=== PATIENT | female | born 1965 | race Caucasian/White ===

== ENCOUNTER 2017-02-28 20:40 | Inpatient (IN) | payer OTHER, MEDICAID ==
[2017-02-28] MEDS: LIDOCAINE/MYLANTA 40 ML BTL PO (22:35)
[2017-02-28] MEDS: SOD CHLORIDE 0.9% 1,000 ML IV (22:35)
[2017-02-28] MEDS: ONDANSETRON 4 MG INJ IV (22:35)
[2017-02-28] MEDS: ACETAMINOPHEN 325 MG TAB PO (22:41)
[2017-02-28 22:50] LABS: ADD MAN DIFF? NO
[2017-02-28 22:56] LABS: WHITE BLOOD COUNT 13.2 10^3/ul (4.8-10.8)
[2017-02-28 22:56] LABS: ABNORMAL IP MESSAGE 1; BASOPHILS % 0.3 % (0.0-2.0); EOSINOPHILS # 0.1 10^3/ul (0.0-0.5); EOSINOPHILS % 0.4 % (0.0-7.0); HEMATOCRIT 36.2 % (37.0-47.0); HEMOGLOBIN 12.2 g/dl (12.0-16.0); LYMPHOCYTES # 0.5 10^3/ul (0.8-2.9); MEAN CORPUSCULAR HEMOGLOBIN 27.7 pg (29.0-33.0); MEAN CORPUSCULAR HGB CONC 33.7 g/dl (32.0-37.0); MEAN CORPUSCULAR VOLUME 82.3 fl (82.0-101.0); MEAN PLATELET VOLUME 11.8 fl (7.4-10.4); MONOCYTE # 0.4 10^3/ul (0.3-0.9); MONOCYTES % 3.2 % (0.0-11.0); NEUTROPHIL # 12.1 10^3/ul (1.6-7.5); NEUTROPHILS % 91.8 % (39.0-77.0); PLATELET COUNT 206 10^3/UL (140-415); RED CELL DISTRIBUTION WIDTH 13.6 % (11.5-14.5)
[2017-02-28 23:00] LABS: POSITIVE DIFF @See below
[2017-02-28 23:03] LABS: ADD UMIC YES; UR ASCORBIC ACID NEGATIVE (NEGATIVE); UR BACTERIA FEW /HPF (NONE SEEN); UR BILIRUBIN (Dip) NEGATIVE (NEGATIVE); UR BLOOD (Dip) NEGATIVE (NEGATIVE); UR CLARITY SLIGHTLY CLOUDY (CLEAR); UR COLOR YELLOW (YELLOW); UR GLUCOSE (Dip) NEGATIVE (NEGATIVE); UR KETONES (Dip) 1+ mg/dL (NEGATIVE); UR LEUKOCYTE ESTERASE (Dip) NEGATIVE Leu/ul (NEGATIVE); UR MUCUS FEW /HPF (NONE SEEN); UR NITRITE (Dip) NEGATIVE (NEGATIVE); UR RBC 2 /HPF (0-5); UR SPECIFIC GRAVITY (Dip) 1.016 (1.003-1.030); UR SQUAMOUS EPITHELIAL CELL FEW /HPF (FEW); UR TOTAL PROTEIN (Dip) 1+ mg/dl (NEGATIVE); UR UROBILINOGEN (Dip) NEGATIVE (NEGATIVE); UR WBC 3 /HPF (0-5)
[2017-02-28 23:19] LABS: ALANINE AMINOTRANSFERASE 49 IU/L (13-69); ALBUMIN 4.4 g/dl (3.3-4.9); ALBUMIN/GLOBULIN RATIO 1.29; ALKALINE PHOSPHATASE 66 IU/L (42-121); ANION GAP 21 (8-16); ASPARTATE AMINO TRANSFERASE 29 IU/L (15-46); BILIRUBIN,INDIRECT 0.2 mg/dl (0-1.1); BILIRUBIN,TOTAL 0.2 mg/dl (0.2-1.3); BLOOD UREA NITROGEN 11 mg/dl (7-20); CALCIUM 9.3 mg/dl (8.4-10.2); CARBON DIOXIDE 22 mmol/L (21-31); CHLORIDE 103 mmol/L (97-110); CREATININE 0.49 mg/dl (0.44-1.00); GLUCOSE 161 mg/dl (70-220); LIPASE 66 U/L (23-300); POTASSIUM 3.9 mmol/L (3.5-5.1); SODIUM 142 mmol/L (135-144); TOTAL PROTEIN 7.8 g/dl (6.1-8.1)
[2017-02-28 23:32] LABS: TROPONIN-I < 0.012 ng/ml (0.00-0.12)
[2017-03-01] MEDS: KETOROLAC 30 MG INJ IV
[2017-03-01] MEDS: morphine 4 MG/ML VIAL IV (01:10)
[2017-03-01] MEDS: FENTAnyl 50 MCG/ML VIAL IV (02:59)
[2017-03-01] MEDS ORDERED: ONDANSETRON 4 MG INJ IV ×2 (04:00→06:30)
[2017-03-01] MEDS: SOD CHLORIDE 0.9% 1,000 ML IV (04:07)
[2017-03-01] MEDS ORDERED: NACL 0.9% 3 ML SYG IV (06:30)
[2017-03-01] MEDS ORDERED: ALBUTEROL/IPRATROPIUM (NEB) 3 ML AMP HHN (06:30)
[2017-03-01] MEDS: DEXTROSE 5%-0.45% NACL 1,000 ML IV ×3 (07:06→22:28)
[2017-03-01] MEDS: ACETAMINOPHEN 325 MG TAB PO (08:32)
[2017-03-01] MEDS: FAMOTIDINE 20 MG INJ IV ×2 (08:34→21:02)
[2017-03-01] MEDS ORDERED: LIDOCAINE 2% JELLY 5 ML (11:01)
[2017-03-01] MEDS ORDERED: LIDOCAINE 2% VISC 15 ML CUP (11:01)
[2017-03-01] MEDS: morphine 2 MG INJ IV ×2 (11:30→17:20)
[2017-03-01] MEDS: BARIUM SULF 2% 450 ML BTL (BERRY SMOOTHIE) PO (12:33)
[2017-03-01] MEDS ORDERED: INFLUENZA VIRUS VACCINE 0.5 ML (DISPENSING) IM* (15:00)
[2017-03-02] MEDS: DEXTROSE 5%-0.45% NACL 1,000 ML IV ×3 (03:32→22:50)
[2017-03-02 05:51] LABS: ADD MAN DIFF? NO
[2017-03-02 05:56] LABS: WHITE BLOOD COUNT 6.7 10^3/ul (4.8-10.8)
[2017-03-02 05:56] LABS: BASOPHILS % 0.3 % (0.0-2.0); EOSINOPHILS # 0.1 10^3/ul (0.0-0.5); EOSINOPHILS % 1.8 % (0.0-7.0); HEMATOCRIT 31.1 % (37.0-47.0); HEMOGLOBIN 10.1 g/dl (12.0-16.0); LYMPHOCYTES # 1.4 10^3/ul (0.8-2.9); LYMPHOCYTES % 21.3 % (15.0-51.0); MEAN CORPUSCULAR HEMOGLOBIN 27.7 pg (29.0-33.0); MEAN CORPUSCULAR HGB CONC 32.5 g/dl (32.0-37.0); MEAN CORPUSCULAR VOLUME 85.2 fl (82.0-101.0); MEAN PLATELET VOLUME 11.9 fl (7.4-10.4); MONOCYTE # 0.6 10^3/ul (0.3-0.9); MONOCYTES % 9.1 % (0.0-11.0); NEUTROPHIL # 4.5 10^3/ul (1.6-7.5); NEUTROPHILS % 67.4 % (39.0-77.0); PLATELET COUNT 175 10^3/UL (140-415); RED BLOOD COUNT 3.65 10^6/ul (4.20-5.40); RED CELL DISTRIBUTION WIDTH 13.3 % (11.5-14.5)
[2017-03-02 06:37] LABS: ALANINE AMINOTRANSFERASE 61 IU/L (13-69); ALBUMIN 3.4 g/dl (3.3-4.9); ALBUMIN/GLOBULIN RATIO 1.25; ALKALINE PHOSPHATASE 43 IU/L (42-121); ANION GAP 12 (8-16); ASPARTATE AMINO TRANSFERASE 44 IU/L (15-46); BILIRUBIN,INDIRECT 0.1 mg/dl (0-1.1); BILIRUBIN,TOTAL 0.1 mg/dl (0.2-1.3); BLOOD UREA NITROGEN 4 mg/dl (7-20); CALCIUM 7.9 mg/dl (8.4-10.2); CARBON DIOXIDE 25 mmol/L (21-31); CHLORIDE 107 mmol/L (97-110); CREATININE 0.61 mg/dl (0.44-1.00); GLUCOSE 150 mg/dl (70-220); MAGNESIUM 2.1 mg/dl (1.7-2.5); PHOSPHORUS 3.2 mg/dl (2.5-4.9); POTASSIUM 3.7 mmol/L (3.5-5.1); SODIUM 140 mmol/L (135-144); TOTAL PROTEIN 6.1 g/dl (6.1-8.1)
[2017-03-02] MEDS: FAMOTIDINE 20 MG INJ IV (08:16)
[2017-03-02] MEDS ORDERED: DEXTROSE 50% 50 ML SYRINGE IV ×2 (11:00)
[2017-03-02] MEDS ORDERED: GLUCOSE GEL 15 GRAM TUBE PO ×2 (11:00)
[2017-03-02] MEDS ORDERED: GLUCAGON 1 MG INJ IM (11:00)
[2017-03-02] MEDS ORDERED: GLUCOSE GEL 15 GRAM TUBE BUCCAL (11:00)
[2017-03-02] MEDS: INSULIN ASPART [NOVOLOG] 3 ML PEN SC ×3 (12:00→21:00)
[2017-03-02] MEDS: LISINOPRIL 10 MG TAB PO (12:23)
[2017-03-02 12:28] LABS: HEMOGLOBIN A1C 7.5 % (0-5.9)
[2017-03-02] MEDS: INFLUENZA VIRUS VACCINE 0.5 ML (DISPENSING) IM* (16:41)
[2017-03-02] MEDS: FAMOTIDINE 20 MG TAB PO (21:03)
[2017-03-03] MEDS: ACCU-CHEK XX (02:00)
[2017-03-03] MEDS: DEXTROSE 5%-0.45% NACL 1,000 ML IV ×2 (06:28→08:34)
[2017-03-03] MEDS: INSULIN ASPART [NOVOLOG] 3 ML PEN SC ×2 (08:00→12:00)
[2017-03-03] MEDS: LISINOPRIL 10 MG TAB PO (08:25)
== END 2017-03-03 14:55 | disposition home or self-care (01) | DRG 392 ==
LOC: FTE 20:40 → PP2 03-01 03:52
DX: A08.4 Viral intestinal infection, unspecified (principal); E11.8 Type 2 diabetes mellitus with unspecified complications; K76.0 Fatty (change of) liver, not elsewhere classified; K56.7 Ileus, unspecified; I10 Essential (primary) hypertension
CPT/HCPCS: 36415; 74176; 76705; 80053; 81001; 82962; 83036; 83690; 83735; 84100; 84484; 85025; 90686; 93005; 96361; 96374; 96375; 96376; 99285-25

== ENCOUNTER 2017-07-01 08:37 | Emergency (ER) | payer OTHER ==
[2017-07-01] MEDS: KETOROLAC 15 MG INJ IM (09:39)
== END 2017-07-01 10:30 | disposition home or self-care (01) ==
LOC: FTE 08:37
DX: M25.531 Pain in right wrist (principal); I10 Essential (primary) hypertension; E11.9 Type 2 diabetes mellitus without complications; F17.210 Nicotine dependence, cigarettes, uncomplicated; Z79.84 Long term (current) use of oral hypoglycemic drugs
CPT/HCPCS: 29125; 73110-RT; 81025; 96372; 99284-25

== ENCOUNTER 2017-10-06 17:43 | Emergency (ER) | payer OTHER ==
[2017-10-06] MEDS: ACETAMINOPHEN 325 MG TAB PO (19:51)
== END 2017-10-06 22:40 | disposition home or self-care (01) ==
LOC: FTE 22:40
DX: R51 Headache (principal); I10 Essential (primary) hypertension; E11.9 Type 2 diabetes mellitus without complications; F17.210 Nicotine dependence, cigarettes, uncomplicated; Z79.84 Long term (current) use of oral hypoglycemic drugs
CPT/HCPCS: 70450; 99284-25

== ENCOUNTER 2017-12-29 08:15 | Emergency (ER) | payer OTHER ==
[2017-12-29] MEDS: KETOROLAC 30 MG INJ IM (09:31)
== END 2017-12-29 09:33 | disposition home or self-care (01) ==
LOC: FTE 08:15
DX: M25.531 Pain in right wrist (principal); I10 Essential (primary) hypertension; E11.9 Type 2 diabetes mellitus without complications; Z79.84 Long term (current) use of oral hypoglycemic drugs; Z87.891 Personal history of nicotine dependence
CPT/HCPCS: 29125; 81025; 96372; 99284-25

== ENCOUNTER 2018-07-30 09:39 | Emergency (ER) | payer OTHER | END 2018-07-30 10:35 | disposition home or self-care (01) | LOC: FTE 10:35 | DX: S69.91XA Unspecified injury of right wrist, hand and finger(s), initial encounter (principal); E11.9 Type 2 diabetes mellitus without complications; I10 Essential (primary) hypertension; F17.210 Nicotine dependence, cigarettes, uncomplicated; W45.0XXA Nail entering through skin, initial encounter; Y92.9 Unspecified place or not applicable; Z79.84 Long term (current) use of oral hypoglycemic drugs | CPT/HCPCS: 29130; 99282-25 ==